=== PATIENT | female | born 1990 ===

== ENCOUNTER 2018-07-10 03:41 | Inpatient (IN) | payer OTHER ==
[2018-07-10 04:10] VITALS: BMI 34.2
[2018-07-10] MEDS ORDERED: Phenaphthazine-PH Test Paper VI ONE (04:15)
[2018-07-10] MEDS ORDERED: AMPicillin 2 GM in Sodium Chloride 0.9% 100 ML IVPB ONE (04:42)
[2018-07-10] MEDS ORDERED: Lactated Ringer's 1,000 ML IV ONE ×2 (04:42→04:43)
[2018-07-10] MEDS ORDERED: AMPicillin 1 GM in Sodium Chloride 0.9% 100 ML IVPB SCH (04:45)
[2018-07-10 05:39] LABS: BASO % 0.3 % (0.0-2.0); EOS % 0.3 % (0.0-4.0); HEMOGLOBIN 12.5 g/dL (12.0-16.0); LYMPH # 2.4 K/uL (1.0-4.3); LYMPH % 22.8 % (20.0-40.0); MEAN CELL VOLUME 96.1 fl (81.0-99.0); MEAN CORPUSCULAR HEMOGLOBIN 32.8 pg (27.0-31.0); MEAN CORPUSCULAR HGB CONC 34.1 g/dL (33.0-37.0); MEAN PLATELET VOLUME 9.3 fl (7.2-11.7); MONO # 0.6 K/uL (0.0-0.8); NEUT # 7.6 K/uL (1.8-7.0); NEUT % 70.6 % (50.0-75.0); RBC 3.8 Mil/uL (3.80-5.20); RED CELL DISTRIBUTION WIDTH 12.9 % (11.5-14.5); WHITE BLOOD COUNT 10.7 K/uL (4.8-10.8)
[2018-07-10] MEDS ORDERED: Fentanyl/Bupivacaine HCl 250 ML EPI ONE (07:10)
--- NOTE | 2018-07-10 07:43 | OBADHP ---
Datetime: 07/10/2018 07:42 Dilatation, Provider: 3cm Effacement, Provider: 70 Station, Provider: -2 Datetime: 07/10/2018 04:59 Admit Comment, IP Provider: [id number] Pt is a 28 yo with IUP at EGA 37.6 wks, ARLIN 07/25/18 based on 14 wk U/S LMP 10/24/17 who pres ents to L_D due to SROM this morning at 3 am, she went to the bathroom felt a gush of fluid and win nues to feel leaking. Also reports contractions Q4mins lasting a few seconds. Patient denies vaginal bleeding. Last felt baby moving 10pm yesterday. Denies fevers, chills, headaches, blurry vision, SOB, CP, N/V/D/C or dysuria. PCP: Dr. Angeles Allergy: NKDA Med: PN Vitamin PMH: Denies PSH: Denies OBGYN: No complications in 1 2016, HSV 1+ FH: Denies Social: denies smoke/ ETOH/ drug use Labs: A +, AB neg, GBS positive, Rubella- Immune, Hep B neg, HIV-neg, RPR- nonreactive PE VS: WNL GEN: NAD HEENT: NCAT, EOMI RESP: CTA, no wheezes, rales, or rhonchi, CV: RRR, No m/r/g ABD: Gravid, Soft, nontender to palpation + BS appreciated throughout LE: no edema Bimanual exam fingertip, 70%, -3 Speculum exam- gross pooling-light red, + nitrazine test Monitor FHR tracing 130's, moderate variability, 15x15 accels, no decels Assessment and plan Pt is a 28 yo with IUP at EGA 37.6 wks, ARLIN 07/25/18 based on 14 wk U/S LMP 10/24/17 who pres ents to L_D due to SROM this morning at 3 am -Admit to L_D -Ampicillin 2g loading dose, 1g Q 4 for GBS PPX -Full liquid diet -Maternal VS monitoring -FHR monitoring-130's, moderate variability, 15x15 accels, no decels -Speculum- fingertip, 70% -3 Case seen and discussed with attending Susana Christensen PGY 1 Addendum: Patient was seen and evaluated with the resident and I agree with the above note. Extremities - PN: Normal Abdomen - PN: Normal Back - PN: Not Done Breast - PN: Not Done Lungs - PN: Normal Heart - PN: Normal Thyroid - PN: Not Done Neurologic - PN: Not Done HEENT - PN: Normal General - PN: Normal Presentation-Admit: C FHR - Baseline A Provider: 130 Amniotic Fluid Color, Provider: Bloody Membranes, Provider: Kota Comments, ACOG Physical Exam: GEN: NAD HEENT: NCAT, EOMI RESP: CTA, no wheezes, rales, or rhonchi, CV: RRR, No m/r/g ABD: Gravid, Soft, nontender to palpation + BS appreciated throughout LE: no edema Bimanual exam fingertip, 70%, -3 Speculum exam- gross pooling-light red, + nitrazine test Monitor FHR tracing 130's, moderate variability, 15x15 accels, no decels Gestation - Est Wks by US: 37.0 Pool Provider: Positive Nitrazine Provider: Positive IP Hx Assessment: The History has been Reviewed and is Current Vital Signs Provider: Reviewed; Within Normal Limits IP Chief Complaint: Uterine contractions; Suspected ruptured membranes NICHD Variability Prov Fetus A: Moderate 6-25bpm NICHD Accel Fetus A IP Provider: [id number] FHR Category Provider Fetus A: Category I NICHD Decel Fetus A IP Provider: None Genitourinary Exam: Normal DTRs - PN: Not Done EGA AdmitDate IP: 37.6 IP Adm Impression: Term, intrauterine ; Ruptured Membranes IP Admit Plan: Admit to unit; Initiate labor protocol
--- NOTE | 2018-07-10 07:48 | OBPN ---
Datetime: 07/10/2018 07:42 IP Progress Impression: Rupture of membranes IP Procedures: Epidural Placement IP Progress Plan: Continue present management Pool Provider: Positive Membranes, Provider: Ruptured Amniotic Fluid Color, Provider: Clear Gestation - Est Wks by US: 37+ Presentation-Admit: C IP Progress Note Comment: just had epidural and better with pain SVE as above will monnitor UC and p ossible augumentation latter Dilatation, Provider: 3cm Effacement, Provider: 70 Station, Provider: -2 Datetime: 07/10/2018 04:59 Nitrazine Provider: Positive FHR - Baseline A Provider: 130 Vital Signs Provider: Reviewed; Within Normal Limits NICHD Accel Fetus A IP Provider: [id number] FHR Category Provider Fetus A: Category I NICHD Variability Prov Fetus A: Moderate 6-25bpm NICHD Decel Fetus A IP Provider: None
[2018-07-10] MEDS: AMPicillin 1 GM in Sodium Chloride 0.9% 100 ML IVPB SCH ×2 (09:25→13:17)
[2018-07-10] MEDS ORDERED: Oxytocin 30 UNIT in NS 500 ml 30 UNITS/500 ML BAG IV ONE ×2 (10:25→12:13)
[2018-07-10] MEDS ORDERED: Lidocaine 1% Inj (20ml) ONE (12:03)
[2018-07-10] MEDS ORDERED: OXYTOCIN/0.9 % NS 20 UNIT/1,000 ML BAG IV SCH (12:15)
--- NOTE | 2018-07-10 14:46 | OBDS ---
MATERNAL INFORMATION Estimated Blood Loss (ml): 200cc Maternal Complications: None Provider Comments: Delivered a living baby boy appears term cried spontaneously, 9/9; AF clear Placenta delivered complete and intact. Uterus contracted well. Episiotomy and small laceration repa ied as above no complication Rectal no defects Tolerated procedure well no complications. LABOR SUMMARY EDC: 07/21/2018 00:00 No. Babies in Womb: 1 LABOR INFORMATION Reason for Induction: Not Applicable Group B Beta Strep: Positive MEMBRANES Membranes Rupture Method: Spontaneous Rupture of Membranes: 07/10/2018 03:00 Amniotic Fluid Color: Clear Amniotic Fluid Amount: Small Amniotic Fluid Odor: Normal VAGINAL DELIVERY Episiotomy: Median Laceration Extension: N/A Laceration Type: Periurethral Laceration Repair: Yes Laceration Repair Note: a Midline 1st-2nd dg episiotomy done and repaired using 2-0 chromic sutures without any complication. A small inferior periurethral tear noted and repaired with simple 2-0 chrom ic x2. no bleeding no complication Sponge Count Correct: Yes Sharps Count Correct: Yes Count Comment: count correct and verified by RN CSECTION DELIVERY Primary Indication: N/A Secondary Indication: N/A CSection Incision: N/A Uterine Closure: N/A PRESENTATION/POSITION BABY A Presentation: Cephalic
[2018-07-10] MEDS ORDERED: Benzocaine/Menthol SPRAY TOP PRN ×2 (14:47→17:13)
[2018-07-10] MEDS ORDERED: Oxycodone/Acetaminophen 5/325 mg Tab PO PRN (14:47)
[2018-07-10] MEDS: Oxycodone/Acetaminophen 5/325 mg Tab PO PRN ×2 (19:47→23:49)
[2018-07-11] MEDS: Oxycodone/Acetaminophen 5/325 mg Tab PO PRN ×2 (03:52→13:23)
[2018-07-11 07:12] LABS: BASO % 0.2 % (0.0-2.0); EOS # 0.1 K/uL (0.0-0.7); EOS % 0.5 % (0.0-4.0); HEMOGLOBIN 10.4 g/dL (12.0-16.0); LYMPH # 2.7 K/uL (1.0-4.3); LYMPH % 21.3 % (20.0-40.0); MEAN CELL VOLUME 96.2 fl (81.0-99.0); MEAN CORPUSCULAR HEMOGLOBIN 32.6 pg (27.0-31.0); MEAN CORPUSCULAR HGB CONC 33.9 g/dL (33.0-37.0); MEAN PLATELET VOLUME 8.8 fl (7.2-11.7); MONO # 0.7 K/uL (0.0-0.8); MONO % 5.6 % (0.0-10.0); NEUT # 9.3 K/uL (1.8-7.0); NEUT % 72.4 % (50.0-75.0); RBC 3.18 Mil/uL (3.80-5.20); RED CELL DISTRIBUTION WIDTH 12.9 % (11.5-14.5); WHITE BLOOD COUNT 12.9 K/uL (4.8-10.8)
--- NOTE | 2018-07-11 07:35 | OBPPN ---
Datetime: 07/11/2018 07:28 PP Pain Prov: Within normal limits PP Pain Prov comment: No SOB, chest or leg pain PP Nausea Prov: Denies PP Flatus Prov: Yes PP Breasts Prov: Normal PP Lungs Prov: Normal PP Abdomen/Uterus Prov: Abnormal PP Lochia Prov: Normal PP Vulva/Perineum Prov: Abnormal PP CVA Tenderness Prov: Normal PP Extremities Prov: Normal PP C/S Incision Prov: Not Applicable PP Progress Prov: Not Applicable PP Comments Phys Exam Prov: breast NT not engorged; Abd soft nd, fundus firm below the umb NT; Perin eum repaired; Ext no calf tenderness. PP Impression Prov: Normal progression PP Plan Prov: Continue present management PP Progress Note Prov: Continue PP care OOB and ambulation Pending CBC results IP PP Procedures: None Vital Signs Provider PP: Reviewed
--- NOTE | 2018-07-12 13:29 | OBPPN ---
Datetime: 07/12/2018 13:26 PP Pain Prov: Within normal limits PP Nausea Prov: Denies PP Flatus Prov: Yes PP BM Prov: Yes PP Breasts Prov: Normal PP Heart Prov: Normal PP Lungs Prov: Normal PP Abdomen/Uterus Prov: Normal PP Lochia Prov: Normal PP Vulva/Perineum Prov: Normal PP CVA Tenderness Prov: Normal PP Extremities Prov: Normal PP Progress Prov: Normal PP Impression Prov: Normal progression PP Plan Prov: Continue present management PP Progress Note Prov: stable ppd2 no complaints dc home today IP PP Procedures: None Vital Signs Provider PP: Reviewed; Within Normal Limits
--- NOTE | 2018-07-12 13:32 | OBDCSUM ---
Datetime: 07/12/2018 11:00 Discharged to, Provider: Home Follow up at, Provider: Dr. Angeles Disch Instr Activity: Normal activity; May be up to bathroom; May be up for meals; May Shower Disch Instr Diet: Regular Discharge Instructions, Provider: Routine instructions given Discharge Diagnosis, Provider: Term Delivered Discharge Time: 07/12/2018 11:00 Follow up in weeks, Provider: 6 weeks Disch Referrals: None Disch Activity Restrictions: No lifting; No driving; Minimize walking; Minimize stair-climbing; No s exual activity; Nothing in vagina - Mcgill, tampons, douche
[2018-07-12 20:32] VITALS: BP 119/68; PULSE 90; RESP 20; TEMP 98.4; O2SAT 100
== END 2018-07-12 13:40 | disposition home or self-care (01) | DRG 373 ==
LOC: H.EROB2 03:41 → H.L&D 04:42 → H.OB/GYN 17:15
PROVIDERS: ADMIT Obstetrics & Gynecology; ATTEND Obstetrics & Gynecology
PROC: 0W8NXZZ Division of Female Perineum, External Approach (ICD-10-PCS; principal; 2018-07-10)
PROC: 10E0XZZ Delivery of Products of Conception, External Approach (ICD-10-PCS; 2018-07-10)
PROC: 4A1HXCZ Monitoring of Products of Conception, Cardiac Rate, External Approach (ICD-10-PCS; 2018-07-10)
DX: O99.824 Streptococcus B carrier state complicating childbirth (principal); Z3A.37 37 weeks gestation of pregnancy; Z37.0 Single live birth; O70.1 Second degree perineal laceration during delivery